=== PATIENT | male | born 1965 | race Caucasian/White ===

== ENCOUNTER 2017-09-22 08:12 | Observation (INO) | payer BC ==
[2017-09-22] MEDS ORDERED: Nitroglycerin 0.4 MG TAB (25 Tab Bottle) ONE (08:31)
[2017-09-22] MEDS ORDERED: Acetaminophen 500 MG TAB ONE (08:44)
[2017-09-22 08:48] LABS: #Eosinphils 0.1 thou/uL (0.0-0.7); #Neutrophils 8.3 thou/uL (1.40-6.50); %Basophils 0.2 % (0.0-1.0); %Eosinophils 1.2 % (0.0-10.0); %Lymphocytes 17.4 % (21.0-51.0); %Monocytes 8.6 % (0.0-10.0); %Neutrophils 72.6 % (42.0-75.0); Hemoglobin 16.8 g/dL (14.0-18.0); Mean Corpuscular HGB CONC 34.3 g/dL (32.0-36.0); Mean Corpuscular Hemoglobin 29.8 pg (27.0-31.0); Mean Corpuscular Volume 86.8 fl (80.0-94.0); Mean Platelet Volume 8.1 fL (7.4-10.4); Platelet Count 207 thou/uL (130-400); RBC Distribution Width 12.5 % (11.5-14.5); Red Blood Cell (RBC) Count 5.63 mill/uL (4.70-6.10); White Blood Cell (WBC) Count 11.5 thou/uL (4.8-10.8)
[2017-09-22] MEDS ORDERED: Aspirin 325 MG TAB PO SCH (09:00)
[2017-09-22 09:12] LABS: ALT (SGPT) 32 U/L (8-55); AST (SGOT) 41 U/L (5-34); Albumin 4.2 g/dL (3.5-5.0); Alkaline Phosphatase 76 U/L (40-150); Anion Gap 14 mmol/L (10-20); BUN (Urea Nitrogen) 19 mg/dL (8.4-25.7); Bilirubin, Total 0.9 mg/dL (0.2-1.2); Calc. Creatinine Clearance 0 mL/min (70-130); Carbon Dioxide 21 mmol/L (22-29); Chloride 104 mmol/L (98-107); Estimated GFR-MDRD Greater than 90; Globulin 2.7 g/dL (2.4-3.5); Glucose 118 mg/dL (70-105); Potassium 4.4 mmol/L (3.5-5.1); Protein, Total 6.9 g/dL (6.0-8.3); Sodium 135 mmol/L (136-145)
[2017-09-22 09:15] LABS: CKMB 5.3 ng/mL (0-6.6); Troponin I Less than 0.010 ng/mL (< 0.028)
--- NOTE | 2017-09-22 09:55 | RAD ---
PORTABLE AP CHEST RADIOGRAPH: Date: 09-22-17 History: Chest pain, shortness of breath. New onset of symptoms this morning. Comparison: None available. FINDINGS: Cardiac silhouette is magnified by projection but does appear mildly enlarged. Pulmonary vasculature is within normal limits. Lungs are clear. Osseous structures are intact. IMPRESSION: 1. No acute cardiopulmonary process. 2. Mild cardiomegaly. POS: [facility]
[2017-09-22] MEDS ORDERED: Acetaminophen 325 MG TAB PO PRN ×2 (11:29→12:44)
[2017-09-22 12:19] VITALS: BMI 30.4
[2017-09-22] MEDS ORDERED: Nitroglycerin 0.4 MG TAB (25 Tab Bottle) PO PRN (12:44)
[2017-09-22] MEDS ORDERED: Amlodipine 10 MG TAB PO SCH (12:45)
[2017-09-22 13:20] LABS: Troponin I Less than 0.010 ng/mL (< 0.028)
[2017-09-22 13:30] LABS: Cardiac Risk 5.5 (Less than 4.5)
[2017-09-22] MEDS ORDERED: Regadenoson 0.4 MG/5 ML SYRINGE ONE (14:41)
--- NOTE | 2017-09-22 15:34 | HP ---
REASON FOR ADMISSION: Chest pain. HISTORY OF PRESENT ILLNESS: The patient gives history of developing retrosternal chest pain around 5 in the morning, which woke him up. The intensity was 10/10 and lasted up until he came to the emergency room. He took 2 nitroglycerin and got relief. He has chronic cough due to his smoking habit, no expectoration. No complaints of fever, palpitations, PND, or orthopnea. No prior cardiac history including stress test. No sinus congestion at present. PAST MEDICAL AND SURGICAL HISTORY: No medical history. He has had a right leg surgery for childhood injury. CURRENT MEDICATIONS: None. ALLERGIES: No known drug allergies. PERSONAL HISTORY: He smokes 1 pack per day. Does not abuse alcohol or drugs. Lives with his . FAMILY HISTORY: Mother is healthy. Father at the age of 49 years. He was obese and in his sleep. REVIEW OF SYSTEMS: The following complete review of systems was negative, unless otherwise mentioned in the HPI or below: Constitutional: Weight loss or gain, ability to conduct usual activities. Skin: Rash, itching. Eyes: Double vision, pain. ENT/Mouth: Nose bleeding, neck stiffness, pain, tenderness. Cardiovascular: Palpitations, dyspnea on exertion, orthopnea. Respiratory: Shortness of breath, wheezing, cough, hemoptysis, fever, or night sweats. Gastrointestinal: Poor appetite, abdominal pain, heartburn, nausea, vomiting, constipation, or diarrhea. Genitourinary: Urgency, frequency, dysuria, nocturia. Musculoskeletal: Pain, swelling. Neurologic/Psychiatric: Anxiety, depression. Allergy/Immunologic: Skin rash, bleeding tendency. PHYSICAL EXAMINATION: GENERAL: The patient is a 52-year-old male, who is currently not in any acute distress and is chest pain free. VITAL SIGNS: Blood pressure 160/90, pulse 74 per minute, respiratory rate 16 per minute, temperature 98.2 degrees Fahrenheit, saturating 97% on room air. NECK: Supple, no elevated JVD. HEENT: Extraocular muscles intact. Pupils reacting to light. Oral cavity, mucous membranes are moist. No exudates or congestion. CARDIOVASCULAR SYSTEM: S1 and S2 heard, regular rhythm. RESPIRATORY SYSTEM: Air entry 2+ bilateral. Scattered rhonchi plus no wheezes. ABDOMEN: Soft, bowel sounds heard. No tenderness, rigidity, or guarding. EXTREMITIES: No peripheral edema or calf tenderness. VASCULAR SYSTEM: Peripheral pulses 2+ bilateral, no ischemic ulcerations or gangrene. CENTRAL NERVOUS SYSTEM: No gross focal deficits seen. Patient is alert, awake , oriented well. PSYCHIATRIC: The patient's mood is euthymic. No hallucinations or delusions. LABORATORY AND X-RAY FINDINGS: Troponin x2 is negative. CK-MB 5.3. Total cholesterol 165, triglycerides 118, LDL 111, HDL is 30. Chest x-ray done shows mild cardiomegaly, no acute infiltrate. Electrolytes are stable. Serum bicarbonate is 21, BUN 19, creatinine 0.7, serum glucose 118, AST 41, ALT 32. White count of 11, H and H 16 and 48, platelet count is 207 with 72% neutrophils , MCV is 86. EKG done shows normal sinus rhythm at 71 beats per minute. There is mild LVH strain pattern seen. CLINICAL IMPRESSION AND PLAN: The patient will be under observation on telemetry for chest pain, rule out acute coronary syndrome. We will follow acute coronary syndrome evidence-based protocol. Two sets of cardiac enzymes are negative and patient is scheduled for nuclear stress test now. If the stress test shows no reversible ischemia or fixed defect, the patient will be shortly discharged home on albuterol inhaler q.6 hourly p.r.n. He was counseled with regard to smoking cessation. The patient would like to have diet control for his mild dyslipidemia. If patient were to go home today, this will be a same-day observation admit/discharge. In view of mild cardiomegaly, an echocardiogram with 2D Doppler will be obtained. If the echo shows any abnormality and if patient is discharged, we will call him and report the results to him. Addendum: nuclear stress test showed no reversible ischemia or fixed defects, his ef was normal on stress test. D/w results with . DC pt home. He will see his new PCP in [facility] on the 07 of October. CAR
[2017-09-22 15:54] VITALS: BP 156/73; TEMP 98
[2017-09-22 16:01] LABS: Troponin I 0.011 ng/mL (< 0.028)
--- NOTE | 2017-09-22 16:24 | NM ---
NUCLEAR MEDICINE CARDIAC STRESS TEST WITH EJECTION FRACTION 09/22/17 HISTORY: Chest pain, smoker, shortness of breath. COMPARISON: None. TECHNIQUE: The exam is performed using Lexiscan stress protocol. Stress only test performed after the intravenou s administration of 27 millicuries technetium 99m Sestamibi. There is adequate left ventricular uptake of radiotracer. No abnormal areas of uptake. The uptake is homogeneous. The wall motion is normal. Calculated election fraction is 55%. IMPRESSION: No evidence of scar or ischemia. Calculated ejection fraction is 55%. POS: [facility]
[2017-09-22] MEDS ORDERED: Famotidine 20 MG TAB PO SCH (21:00)
[2017-09-23] MEDS ORDERED: Aspirin 325 MG TAB PO SCH (09:00)
--- NOTE | 2017-09-26 11:39 | STRESS ---
Acquisition Time: 2017-09-22 14:01:00 Total Exercise Time: 00:04:00 Test Indications: CHEST PAIN Medications: Protocol: ADENOSINE Max HR: 091 BPM 54% of Pred: 167 BPM Max BP: 144/084 mmHG Max Work Load: 1.0 METS RESTING ECG: NORMAL SINUS RHYTHM AT 65 BPM SYMPTOMS: NONE APPROPRIATE BLOOD PRESSURE RESPONSE FOR LEXISCAN ECTOPY: NONE ECG RESPONSE: NO SIGNIFICANT CHANGES INTERPRETATION: NEGATIVE ECG/AWAIT NUCLEAR IMAGES FOR DEFINITIVE DIAGNOSIS Confirmed by ERA OSWALD M.D. ([id number] on 09/26/2017 11:39:38 AM Referred By: Doris SHERMAN Confirmed By:ERA OSWALD M.D.
== END 2017-09-22 18:10 | disposition home or self-care (01) ==
LOC: ERS 08:12 → 2SW 10:17
PROVIDERS: ADMIT Internal Medicine; ATTEND Internal Medicine
DX: R07.89 Other chest pain (principal); F17.210 Nicotine dependence, cigarettes, uncomplicated; I08.1 Rheumatic disorders of both mitral and tricuspid valves
CPT/HCPCS: 36415; 71045; 78452; 80053; 80061; 82553; 84484; 85025; 90471; 90732; 93005; 93017; 93306; A9500; G0009; G0378; J2785